=== PATIENT | male | born 1975 | race Caucasian/White ===

== ENCOUNTER 2020-07-17 11:05 | Emergency (ER) | payer SELFPAY ==
[~2020-07-17] VITALS: Ht 188 cm; Wt 98.9 kg
[2020-07-17 11:37] VITALS: BP 121/73
--- NOTE | 2020-07-17 11:40 | NUR ---
PT PRESENTS TO ED WITH C/O CONSTANT BURNING IN PENIS X2 WEEKS. STATES HE WENT TO [place] 2 DAYS AGO WHERE THEY GAVE HIM TOPICAL OINMTNET THAT HAS NOT RESOLVED PAIN. PT DENIES PAINFUL URINATION, STATES IT FEELS LIKE "CURLING IRON IS CONSTANTLY PRESSED UP AGAINST MY JUNK". PT A&O, RESPS EVEN AND UNLABORED, VSS, CALL LIGHT IN REACH.
[2020-07-17] MEDS ORDERED: CEFTRIAXONE 1,000 MG ONE (11:55)
[2020-07-17] MEDS ORDERED: HYDROcodone/APAP 5/325 TABLET ONE ×2 (11:55→12:06)
[2020-07-17] MEDS ORDERED: HYDROcodone/APAP 5/325 TABLET PO ONE (12:00)
[2020-07-17] MEDS ORDERED: CEFTRIAXONE 1,000 MG IM ONE (12:00)
--- NOTE | 2020-07-17 12:28 | NUR ---
DISCHARGE INSTRUCTIONS REVIEWED
== END 2020-07-17 12:39 | disposition home or self-care (01) ==
LOC: ED 12:10
DX: A60.01 Herpesviral infection of penis (principal)
CPT/HCPCS: 96372; 99283; J0696